=== PATIENT | female | born 1960 ===

== ENCOUNTER → 2024-06-21 | Outpatient (CLI) | payer MEDICARE ==
[2024-06-21 14:46] LABS: Basophils # (A) 0.04 X 10*3/uL (0.00-0.10); Basophils % (A) 0.7 %; Eosinophils # (A) 0.08 X 10*3/uL (0.04-0.35); Eosinophils % (A) 1.4 %; HCT 40.5 % (37.2-46.3); HGB 13.3 g/dL (12.0-15.0); Lymphocytes # (A) 1.25 X 10*3/uL (0.90-5.00); Lymphocytes % (A) 22.5 %; MCH 33.3 pg (27.0-32.0); MCHC 32.8 g/dL (32.0-37.0); MCV 101.3 FL (80.0-97.0); Mean Platelet Volume 10.8 FL (9.5-12.2); Monocytes # (A) 0.57 X 10*3/uL (0.20-1.00); Monocytes % (A) 10.3 %; NRBC Per 100 WBC 0 X 10*3/uL (0.00-0.01); Neutrophils # (A) 3.61 X 10*3/uL (1.80-7.70); Neutrophils % (A) 64.9 %; Platelet Count 158 X 10*3/uL (140-440); RDW 12.8 % (11.5-14.5); WBC 5.56 X 10*3/uL (4.50-10.00)
[2024-06-21 15:47] LABS: ALT 16 U/L (8-44); AST 19 U/L (13-35); Albumin 4.3 g/dL (3.8-4.9); Albumin/Globulin Ratio 1.95 Ratio (1.60-3.17); Alkaline Phosphatase 74 U/L (41-126); BUN/Creat Ratio 18.29 Ratio (12.00-20.00); Blood Urea Nitrogen 12.8 mg/dL (9.0-27.0); Calcium 9.8 mg/dL (8.7-10.3); Carbon Dioxide 24.8 mmol/L (21.6-31.8); Chloride 109 mmol/L (96-109); Chol/HDL Ratio 3.41 Ratio; Globulin 2.2 g/dL (1.6-3.3); Glucose 94 mg/dL (70-110); LDL Cholesterol,Calculated 115.8 mg/dL (0.0-131.0); Potassium 4.7 mmol/L (3.5-5.5); Sodium 143 mmol/L (135-145); Total Bilirubin 0.5 mg/dL (0.3-1.2); Total Protein 6.5 g/dL (6.2-8.2); VLDL Calculation 15.64 mg/dL (5.00-40.00)
== END | disposition home or self-care (01) ==
LOC: LABWHC1 08:19
DX: Z13.228 Encounter for screening for other metabolic disorders (principal); K75.4 Autoimmune hepatitis; D75.89 Other specified diseases of blood and blood-forming organs; R91.1 Solitary pulmonary nodule
CPT/HCPCS: 36415; 80053; 80061; 82607; 82747; 83036; 85025